=== PATIENT | male | born 1950 | race Caucasian/White ===

== ENCOUNTER 2018-04-04 19:15 | Emergency (ER) | payer OTHER ==
[~2018-04-04] VITALS: Ht 152.4 cm; Wt 63.5 kg
[~2018-04-04 19:15] MED LIST: ASA81 MG PO; ASPIRIN81 M2 PO; INDUR; NORVASC5 MG PO; PLAVIX75 MG PO; TOPROL XL25 MG PO; VASOTEC10 MG NGT; VASOTEC5 MG
== END 2018-04-04 22:20 | disposition home or self-care (01) ==
LOC: ER 19:15
DX: R07.89 Other chest pain (principal)

== ENCOUNTER 2018-11-09 17:21 | Emergency (ER) | payer OTHER ==
[~2018-11-09] VITALS: Ht 177.8 cm; Wt 64.4 kg
== END 2018-11-10 01:07 | disposition home or self-care (01) ==
LOC: ER 17:21 → CPU-OBS 17:32 → ER 17:32
DX: R07.89 Other chest pain (principal)